=== PATIENT | male | born 1940 | race Caucasian/White ===

== ENCOUNTER 2016-11-27 08:21 | Observation (INO) | payer MEDICARE ==
[2016-11-27 08:49] LABS: Hematocrit 43 % (42-52); Hemoglobin 13.9 g/dl (14.0-18.0); Mean Corpuscular HGB Conc 32 g/dl (31-36); Mean Corpuscular Hemoglobin 28 pg (27-31); Mean Corpuscular Volume 86 fL (80-94); Mean Platelet Volume 8 um3 (7.4-10.4); Red Blood Count 5.04 10^6/ul (4.0-5.4); Red Cell Distribution Width 15 % (10.5-15); White Blood Count 7.6 10^3/ul (3.5-10.8)
[2016-11-27 09:00] LABS: Albumin 4.1 g/dL (3.2-5.2); BUN/Creatinine Ratio 18.1 (8-20); Calcium 8.9 mg/dL (8.6-10.3); EGFR African American 100.1 (>60); EGFR Non-African American 77.8 (>60); Globulin 3.1 g/dL (2-4); HDL Cholesterol 48.2 mg/dL; Potassium 3.9 mmol/L (3.5-5.0); Total Bilirubin 0.7 mg/dL (0.2-1.0); Total Protein 7.2 g/dL (6.4-8.9)
--- NOTE | 2016-11-27 09:10 | RAD ---
INDICATION: Code gary neurologic changes. COMPARISON: There are no prior studies available for comparison. TECHNIQUE: Contiguous axial sections of the brain were obtained from the skull base to the vertex without contrast. FINDINGS: The ventricles are disproportionately enlarged relative to the cisterns and sulci suggesting the possibility of normal pressure hydrocephalus. No significant focal abnormality or mass effect is seen. There is no evidence for hemorrhage. No significant focal osseous abnormality is seen. The visualized portion of the paranasal sinuses and mastoid air cells appear clear. The results of this exam were called to the referring clinician at 0859 hours. IMPRESSION: 1. NO EVIDENCE FOR GROSS ACUTE INFARCT, MASS EFFECT OR HEMORRHAGE. 2. DISPROPORTIONATE ENLARGEMENT OF THE VENTRICLES RELATIVE TO THE CISTERNS AND SULCI SUGGESTING THE POSSIBILITY OF NORMAL PRESSURE HYDROCEPHALUS.
--- NOTE | 2016-11-27 09:15 | RAD ---
INDICATION: Right arm weakness. COMPARISON: Comparison is made with a prior chest x-ray study from April 17, 2010. TECHNIQUE: A portable view of the chest was obtained. FINDINGS: Cardiac and mediastinal contours appear to be within normal limits. The lungs are clear. No pleural effusion is seen. IMPRESSION: NO EVIDENCE FOR ACUTE DISEASE.
[2016-11-27 09:50] LABS: Urine Bilirubin Negative (Negative); Urine Glucose Negative (Negative); Urine Nitrite Negative (Negative)
--- NOTE | 2016-11-27 10:35 | CONSULT ---
Consult Consult: 11/27/16 neurology consult 76 yo RHM, HTN, HL, DM, on ASA 81mg baseline, presenting with right arm symptoms of 10 days duration, and right facial symptoms noted earlier today. 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 He slipped and fell on ice 10 days ago; he thinks he fell onto his left side but twisted his right leg under him. He had some right medial forearm pain for a few hours; this resolved spontaneously; he also noted some tailbone discomfort. He subsequently noted right hand incoordination (eg when typing or using ipad) and sensory asymmetry in all digits but the pinky. This has persisted; he refers to this as proprioceptive loss. Starting this am only he noted right facial sensory asymmetry. He has not had any neck pain, bulbar or bowel or bladder issues, left arm, truncal, leg or gait issues. 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 Plantar responses are flexor; Neely signs absent Coordination: finger to nose was initially dysmetric on right, then self corrected; finger nose finger appears accurate bilaterally Gait: normal casual gait; narrow base; Romberg negative; heel and toe walking intact for age Serologies: chem, cbc, LFT, coags are all fine; LDL 76 non fasting Priors: B12, TSH, PSA all ok; aic 6 in 05/11 Imaging: Head CT reviewed and negative acute findings (questionable relative lateral ventriculomegaly vs age related, but incidental to his presentation; 3rd/4th vents look normal) 06/11 thyroid u/s stable nodules; 04/08 CT chest, abd and pelvis essentially neg Phys: 06/08 holter neg Impression: 76 yo several modest vascular risk factors, presenting with 10 days right hand incoordination and sensory asymmetry (noted post fall) and right facial sensory asymmetry of less than one day duration; his exam has just mild reproducible right finger extensor weakness. He denies significant trauma; and does not appear myelopathic. His head CT is negative for acute findings. Assuming a unifying diagnosis for the arm and facial symptoms, the differential is one of: small evolving left hemisphere stroke vs modest cervical cord involvement ( presumably traumatic); while the hand symptoms could reflect post fall brachial plexus injury, this would not explain his facial symptoms. As the workup and treatment for these 2 categories of disorder are different, then plan will be: 1. Mri brain non contrasted if positive for ischemia, then complete stroke workup with TTE, CTA 2. If mri brain is done and negative, then proceed with non contrasted mri cervical spine 3. I will follow up on the results
[2016-11-27] MEDS ORDERED: Dextrose 50% Syringe 50 ML* 25 GM/50 ML SYRINGE IV PUSH PRN (11:38)
[2016-11-27] MEDS ORDERED: Acetaminophen TAB* 325 MG PO PRN (11:38)
[2016-11-27] MEDS ORDERED: Ondansetron INJ* 2 MG/ML VIAL IV PRN (11:38)
[2016-11-27] MEDS ORDERED: hydrALAZINE IV* 20 MG/ML VIAL IV SLOW PU PRN (11:40)
--- NOTE | 2016-11-27 11:40 | ED ---
IIsrael,Mekhi, scribed for Aaron Wood MD on 11/27/16 at 0843 . Neurological HPI - HPI Summary HPI Summary: This 76 y/o male presents to ED for acute right facial numbness that was noted 0600 AM when he woke up. Pt became concerned for possible stroke and decided to visit ED. Pt reports that he has had intermittent RUE after his mechanical fall on ice 10 days ago. No head injury at that time. He also reports RUE numbness and intermittent vision deficiency at his left vision field. Pt is currently on losartan and pravastatin. 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 Per pt, both parents had CAD. - History of Current Complaint Chief Complaint: EDAltMentalStatus Stated Complaint: WEAKNESS Hx Obtained From: Patient, Medical Records Onset/Duration: Sudden Onset Timing: Constant Onset Severity: Moderate Pain Intensity: 0 Character: Numbness/Tingling - right facial numbness. RUE numbness, Visual Changes - left vision disturbances Aggravating: Nothing Alleviating: Nothing Associated Signs and Symptoms: Positive: Visual Changes. Negative: Weakness, Loss of Consciousness - Allergy/Home Medications Allergies/Adverse Reactions: Allergies Allergy/AdvReac Type Severity Reaction Status Date / Time Lisinopril Allergy Headache Verified 04/05/14 09:37 enviromental Allergy Congestion Uncoded 04/05/14 09:37 PMH/Surg Hx/FS Hx/Imm Hx Endocrine/Hematology History: Reports: Hx Diabetes - type 2 - diabetes mellitus - diet/exercise Denies: Hx Anemia Cardiovascular History: Reports: Hx Hypercholesterolemia, Hx Hypertension GI History: Reports: Other GI Disorders - rlq discomfort, swelling per pt Denies: Hx Jaundice History: Reports: Other Problems/Disorders - enlarged prostate - Cancer History Cancer Type, Location and Year: charles hx Infectious Disease History: No Infectious Disease History: Denies: Traveled Outside the [place] in Last 30 Days - Family History Known Family History: Positive: Cardiac Disease - Social History Alcohol Use: Occasionally Substance Use Type: Reports: None Smoking Status (MU): Never Smoked Tobacco Review of Systems Negative: Fever Positive: Other - left vision disturbances Positive: Numbness - right sided Negative: Anxious, Depressed All Other Systems Reviewed And Are Negative: Yes Physical Exam Triage Information Reviewed: Yes Vital Signs On Initial Exam: Initial Vitals Temp Pulse Resp BP Pulse Ox 98.1 F 92 16 166/88 99 11/27/16 08:22 11/27/16 08:22 11/27/16 08:22 11/27/16 08:22 11/27/16 08:22 Vital Signs Reviewed: Yes Appearance: Positive: Well-Appearing, No Pain Distress Skin: Positive: Warm, Dry Head/Face: Positive: Normal Head/Face Inspection Eyes: Positive: EOMI, BILLY Neck: Positive: Supple, Nontender Respiratory/Lung Sounds: Positive: Breath Sounds Present Cardiovascular: Positive: RRR, Pulses are Symmetrical in both Upper and Lower Extremities Musculoskeletal: Positive: Strength/ROM Intact Neurological: Positive: Facial Droop - mild right facial droop, Other - sensory deficit on right face.. Negative: Slurred Speech Diagnostics - Vital Signs Vital Signs Temp Pulse Resp BP Pulse Ox 11/27/16 08:22 98.1 F 92 16 166/88 99 - Laboratory Lab Results: Lab Results 11/27/16 11/27/16 11/27/16 Range/Units 08:41 08:41 08:41 WBC 7.6 (3.5-10.8) 10^3/ul RBC 5.04 (4.0-5.4) 10^6/ul Hgb 13.9 L (14.0-18.0) g/dl Hct 43 (42-52) % MCV 86 (80-94) fL MCH 28 (27-31) pg MCHC 32 (31-36) g/dl RDW 15 (10.5-15) % Plt Count 277 (150-450) 10^3/ul MPV 8 (7.4-10.4) um3 Neut % (Auto) 75.4 (38-83) % Lymph % (Auto) 13.9 L (25-47) % [place] % (Auto) 8.4 (1-9) % Eos % (Auto) 2.0 (0-6) % Baso % (Auto) 0.3 (0-2) % Absolute Neuts (auto) 5.7 (1.5-7.7) 10^3/ul Absolute Lymphs (auto) 1.1 (1.0-4.8) 10^3/ul Absolute Monos (auto) 0.6 (0-0.8) 10^3/ul Absolute Eos (auto) 0.1 (0-0.6) 10^3/ul Absolute Basos (auto) 0 (0-0.2) 10^3/ul Absolute Nucleated RBC 0 10^3/ul Nucleated RBC % 0 INR (Anticoag Therapy) 0.90 (0.89-1.11) APTT 30.6 (26.0-36.3) seconds Sodium 138 (133-145) mmol/L Potassium 3.9 (3.5-5.0) mmol/L Chloride 105 (101-111) mmol/L Carbon Dioxide 27 (22-32) mmol/L Anion Gap 6 (2-11) mmol/L BUN 17 (6-24) mg/dL Creatinine 0.94 (0.67-1.17) mg/dL Est GFR ( Amer) 100.1 (>60) Est GFR (Non-Af Amer) 77.8 (>60) BUN/Creatinine Ratio 18.1 (8-20) Glucose 112 H (70-100) mg/dL Lactic Acid (0.5-2.0) mmol/L Calcium 8.9 (8.6-10.3) mg/dL Total Bilirubin 0.70 (0.2-1.0) mg/dL AST 16 (13-39) U/L ALT 18 (7-52) U/L Alkaline Phosphatase 64 (34-104) U/L Troponin I 0.00 (<0.04) ng/mL Total Protein 7.2 (6.4-8.9) g/dL Albumin 4.1 (3.2-5.2) g/dL Globulin 3.1 (2-4) g/dL Albumin/Globulin Ratio 1.3 (1-3) Triglycerides 98 mg/dL Cholesterol 144 mg/dL LDL Cholesterol 76 mg/dL HDL Cholesterol 48.2 mg/dL Urine Color Urine Appearance Urine pH (5-9) Ur Specific White (1.010-1.030) Urine Protein (Negative) Urine Ketones (Negative) Urine Blood (Negative) Urine Nitrate (Negative) Urine Bilirubin (Negative) Urine Urobilinogen (Negative) Ur Leukocyte Esterase (Negative) Urine Glucose (Negative) Urine Ascorbic Acid (Negative) Blood Type Antibody Screen 11/27/16 11/27/16 11/27/16 Range/Units 08:41 08:41 09:35 WBC (3.5-10.8) 10^3/ul RBC (4.0-5.4) 10^6/ul Hgb (14.0-18.0) g/dl Hct (42-52) % MCV (80-94) fL MCH (27-31) pg MCHC (31-36) g/dl RDW (10.5-15) % Plt Count (150-450) 10^3/ul MPV (7.4-10.4) um3 Neut % (Auto) (38-83) % Lymph % (Auto) (25-47) % [place] % (Auto) (1-9) % Eos % (Auto) (0-6) % Baso % (Auto) (0-2) % Absolute Neuts (auto) (1.5-7.7) 10^3/ul Absolute Lymphs (auto) (1.0-4.8) 10^3/ul Absolute Monos (auto) (0-0.8) 10^3/ul Absolute Eos (auto) (0-0.6) 10^3/ul Absolute Basos (auto) (0-0.2) 10^3/ul Absolute Nucleated RBC 10^3/ul Nucleated RBC % INR (Anticoag Therapy) (0.89-1.11) APTT (26.0-36.3) seconds Sodium (133-145) mmol/L Potassium (3.5-5.0) mmol/L Chloride (101-111) mmol/L Carbon Dioxide (22-32) mmol/L Anion Gap (2-11) mmol/L BUN (6-24) mg/dL Creatinine (0.67-1.17) mg/dL Est GFR ( Amer) (>60) Est GFR (Non-Af Amer) (>60) BUN/Creatinine Ratio (8-20) Glucose (70-100) mg/dL Lactic Acid 1.2 (0.5-2.0) mmol/L Calcium (8.6-10.3) mg/dL Total Bilirubin (0.2-1.0) mg/dL AST (13-39) U/L ALT (7-52) U/L Alkaline Phosphatase (34-104) U/L Troponin I (<0.04) ng/mL Total Protein (6.4-8.9) g/dL Albumin (3.2-5.2) g/dL Globulin (2-4) g/dL Albumin/Globulin Ratio (1-3) Triglycerides mg/dL Cholesterol mg/dL LDL Cholesterol mg/dL HDL Cholesterol mg/dL Urine Color Yellow Urine Appearance Clear Urine pH 5.0 (5-9) Ur Specific White 1.020 (1.010-1.030) Urine Protein Negative (Negative) Urine Ketones Negative (Negative) Urine Blood Negative (Negative) Urine Nitrate Negative (Negative) Urine Bilirubin Negative (Negative) Urine Urobilinogen Negative (Negative) Ur Leukocyte Esterase Negative (Negative) Urine Glucose Negative (Negative) Urine Ascorbic Acid * H (Negative) Blood Type A Negative Antibody Screen Negative Result Diagrams: 11/27/16 08:41 11/27/16 08:41 Lab Statement: Any lab studies that have been ordered have been reviewed, and results considered in the medical decision making process. - Radiology CXR Xray Interpretation: No Acute Changes Radiology Interpretation Completed By: Radiologist - CT Brain CT Interpretation: No Acute Changes - 1. NO EVIDENCE FOR GROSS ACUTE INFARCT, MASS EFFECT OR HEMORRHAGE. 2. DISPROPORTIONATE ENLARGEMENT OF THE VENTRICLES RELATIVE TO THE CISTERNS AND SULCI SUGGESTING THE POSSIBILITY OF NORMAL PRESSURE HYDROCEPHALUS. CT Interpretation Completed By: Radiologist - EKG 0838 Cardiac Rate: NL EKG Rhythm: Sinus Rhythm Ectopy: PACs EKG Interpretation: NSR at 88 bpm with PACs and normal ST Course/Dx - Course Assessment/Plan: DR [place], NEUROLOGY, SAW PATIENT IN ED. ADMIT HOSPITALIST STABLE. - Diagnoses Provider Diagnoses: Facial weakness, Arm weakness During the Visit The Following Alert/Code Occurred: [place] - 0831 AM - Physician Notifications Discussed Care of Patient With: Dr. Hernandez (Neurology) at [address] Franklin (Radiologist) at 0902 AM. Perry Velázquez NP (Hospitalist) at [address] Franklin (Radiologist) at 1125 AM. Discussion about MRI. Time Discussed With Above Provider: 08:37 Instructed by Provider To: Will See In ED Discharge - Discharge Plan Condition: Stable Disposition: ADMITTED TO [facility] The documentation as recorded by the Israel trujillo Soohyun accurately reflects the service I personally performed and the decisions made by , Aaron Wood MD.
--- NOTE | 2016-11-27 14:10 | HP ---
HISTORY AND PHYSICAL:* ADDENDUM: Mr. Appiah is a 76-year-old male with history of hypertension, dyslipidemia, who presented to [facility] complaining of problems with proprioception in his right hand as well as right facial numbness that developed today. The problems with clumsiness in the right hand had been going on for 10 days ever since he fell hitting the right side of his body on ice 10 days ago. The patient was seen by a neurologist who recommended observation to rule out CVA. The patient is going to be observed on telemetry monitored floor. For further details of the patient's presentation and plan, please see History and Physical dictated by Perry Velázquez NP, on 11/27/16, with which I agree. [id number]/CPS #: [id number] MTDD
[2016-11-27] MEDS ORDERED: Iodixanol* (CONTRAST) 320 MG/ML 100 ML SDV IV ONE (14:15)
--- NOTE | 2016-11-27 14:19 | RAD ---
INDICATION: Right face and arm numbness and weakness. COMPARISON: Correlation is made with a prior CT of the brain of the same day. TECHNIQUE: Sagittal T1, axial T1, T2, susceptibility, FLAIR and diffusion weighted images were obtained. FINDINGS: The ventricles are disproportionately enlarged relative to the cisterns and sulci. There are small areas of increased signal intensity in the subcortical and periventricular white matter on T2-weighted images suggestive of mild chronic small vessel ischemic changes. There are several small areas of restricted diffusion present in the left frontal and parietal lobes involving the cortex and subcortical white matter consistent with with an acute to subacute infarcts. There is no evidence for hemorrhage. The visualized portion of the paranasal sinuses and mastoid air cells appear clear. IMPRESSION: 1. SMALL AREAS OF RESTRICTED DIFFUSION PRESENT IN THE LEFT FRONTAL AND PARIETAL LOBES MOST CONSISTENT WITH ACUTE TO SUBACUTE INFARCTS. 2. DISPROPORTIONATE ENLARGEMENT OF THE VENTRICLES RELATIVE TO THE CISTERNS AND SULCI SUGGESTING THE POSSIBILITY OF NORMAL PRESSURE HYDROCEPHALUS.
--- NOTE | 2016-11-27 15:10 | RAD ---
INDICATION: Right face and arm numbness and weakness. COMPARISON: There are no prior studies available for comparison. TECHNIQUE: Axial T2 and sagittal T1 and T2 and coronal T2-weighted images of the cervical spine were obtained. FINDINGS: The vertebra are in normal alignment. No significant focal bony abnormality or fracture is seen. The craniocervical junction is within normal limits. The spinal cord is normal in shape and signal intensity. At the C4-C5 level there is a minimal broad-based disc bulge. No spinal canal or neural foraminal narrowing is present. At the C5-C6 level there is a mild broad-based disc bulge. No spinal canal or neural foraminal narrowing is present. At the C6-C7 level there is mild posterior uncinate process spurring associated with a mild broad-based disc bulge. No significant spinal canal or neural foraminal narrowing is present. IMPRESSION: MILD CERVICAL SPONDYLOSIS.
--- NOTE | 2016-11-27 15:16 | HP ---
ATTENDING PHYSICIAN ADDENDUM NOW INCLUDED ON THIS REPORT HISTORY AND PHYSICAL: DATE OF ADMISSION: 11/27/16 PRIMARY CARE PROVIDER: Dr. Camarena. MY ATTENDING PHYSICIAN WHILE IN THE HOSPITAL: Dr. Lavern Chavez * (report dictated by Perry Velázquez NP). CONSULTING NEUROLOGIST: Dr. Hernandez. CHIEF COMPLAINT: 1. Right arm numbness. 2. Right facial numbness. HISTORY OF PRESENT ILLNESS: Mr. Appiah is a 76-year-old male patient who carries a history of diet-controlled diabetes, hypertension, hyperlipidemia, BPH , optic migraine, and GERD. He states that about 10 days ago, he was in his driveway and he sustained a fall on ice, he landed on his right knee and his right wrist and arm. He states that since then, he has noticed off and on he has been having difficulty with depth perception and fine motor skills with his right hand off and on. He states he has trouble typing, he has trouble moving a mouse with that arm and particularly the hand. He states he has got good strength of his upper extremity at his shoulders and his elbows, but he states with his hand, he has noticed that he is having trouble with depth perception. He notices when he sets a cup of coffee down and he goes to pick it back up, he spills it. He has also noticed numbness in the digits as well. He states that this has been going on for about 10 days, but today he noticed he was starting to have some right facial numbness and it was also noted that it felt like he had been shot up with Novocaine in that face. He states it felt numb, that is all. No facial droop or trouble with speech. He also does admit to having yesterday a visual field defect in his left eye. He states the upper portion of his left visual field appeared to be blurry, lasted 2 minutes and then went away. He denies having any weakness to his lower extremities and states that he just noted that there was something off with his right hand and his right arm in terms of depth perception and proprioception in his own words. So he came into the hospital today to be evaluated. A Code Caldwell was called, but tPA was not given as the time of onset was unclear and the symptoms were minimal. Neurology was asked to evaluate and the hospitalist service was asked to evaluate and consult for admission. PAST MEDICAL HISTORY: Significant for: 1. Hypertension. 2. Diet-controlled diabetes. 3. Hyperlipidemia. 4. BPH. 5. Optic migraines. 6. GERD. PAST SURGICAL HISTORY: He has had a cholecystectomy. FAMILY HISTORY: Both his parents had MIs, his mother at 68, father at 72. SOCIAL HISTORY: He does not smoke. Rarely drinks alcohol. He is . Surrogate decision maker is his , Alize. ALLERGIES TO MEDICATIONS: Include LISINOPRIL. MEDICATIONS: His home meds according to the list provided includes: 1. Flomax 0.4 mg daily. 2. VESIcare 5 mg daily. 3. Pravastatin 80 mg at bedtime. 4. Lutein 10 mg daily. 5. Cozaar 25 mg daily. 6. Proscar 5 mg daily. 7. Aspirin 81 mg daily. REVIEW OF SYSTEMS: There is no documented fever. He denied having any significant weight change. There was no double vision. He admitted to have one episode of blurry vision. He denies any ear discharge, any rhinorrhea. No sore throat. No thyroid enlargement. Denies any chest pain. There is no palpitations. Denies having any orthopnea. There is no shortness of breath. There is no nausea, vomiting. No dysuria. No frequency. No loss of consciousness. No pruritus and no skin ulcerations. Review of 14 systems completed, all others negative. PHYSICAL EXAMINATION GENERAL: At this time, Mr. Appiah is a 76-year-old male patient. He is sitting in the ER stretcher. He does not appear to be in any acute distress. VITAL SIGNS: Blood pressure 166/79, pulse 88, respirations 18, O2 sat 98%, temperature 98.1. HEENT: Head is atraumatic, normocephalic. Eyes: EOMs are intact. Sclerae anicteric. Throat: Oral mucosa appears to be moist. No oropharyngeal erythema. NECK: Supple. HEART: Sounds S1, S2. Regular rate and rhythm. No murmurs, rubs or gallops. LUNGS: Clear to auscultation bilaterally. No wheezes, rales or rhonchi. ABDOMEN: Soft, flat, nontender. Bowel sounds present. EXTREMITIES: Pulses were 2+ throughout. He is able to move all 4 extremities with 5/5 strength. NEUROLOGICAL: The patient is awake, he is alert, he is oriented x3. His speech is clear. His tongue is midline. Cranial nerves II through XII are intact. He had 5/5 strength in the upper extremities with both flexion and extension at the elbows and at the shoulder and 5/5 strength in the lower extremities. Zcmtkr-rw-[id number] was dysmetric on the right and chapjd-nk-[id number] was accurate on the left. He had heel-to- chin intact bilaterally. He had normal gait. His skin was grossly intact. LABORATORY DATA: The labs today revealed a WBC of 7.6, RBC of 5.04, hemoglobin 13.9, hematocrit of 43, platelet count of 227. INR was 0.90. PTT of 30.6. Sodium 138, potassium 3.9, chloride 105, bicarb 27, BUN 17, creatinine 0.94. Glucose of 112. Lactate 1.2, calcium 8.9, total bilirubin 0.7. AST 16, ALT 18, alk phos 54, troponin 0, albumin 4.1. His LDH was 76, triglycerides 98. Total cholesterol 144. Urine was obtained. It was negative. He had an EKG obtained today, which revealed a normal sinus rhythm. He did have a PAC. No ST-elevations or T-wave inversions, rate of 88. As reviewed in the previous EKG, it is similar. He had PVC with the previous EKG. He had a chest x-ray obtained today, showed no evidence of acute disease. There was a brain CT obtained today, showed no evidence of gross acute infarct, mass effect or hemorrhage. Disproportionate enlargement of the ventricle as well as cisterns , suggesting possibility of normal pressure hydrocephalus. Old medical records were reviewed. ASSESSMENT AND PLAN: Mr. Appiah is a 76-year-old male patient coming into the ER today with complaints of discoordination to the base of his right hand, and trouble with fine motor skills and numbness to the right face. He was evaluated in the ER, there was concern for possible TIA versus stroke. Hospitalist service was asked to evaluate for admission. He will be admitted under observation status for: 1. Transient ischemic attack versus cerebrovascular accident versus possible cervical cord involvement. At this point, the patient has been seen by Neurology, I will refer you to the consult for details, but the plan is to do an MRI of the brain, MRI of the neck at this point. If the MRI of the brain is positive, he will need an echo, he will need a CTA. We will place him on telemetry for the time being because there is concern for possible stroke. I did put him on aspirin and moderate-dose statin and Lipitor 40 mg daily. We will check his lipids in the morning fasting and an A1c as well, his last one was about 6 months ago, so monitor this, and because there is concern for CVA, I am going to allow permissive hypertension in this setting. I will treat his blood pressure if the systolic is greater than 190 or the diastolic greater than 110 and we will continue to monitor him. We will do neuro checks and MRI should be done later today. Should there be any cord involvement, obviously we will get neurosurgical evaluation and input, but we will await MRI of the brain. 2. Diabetes. He will be on lispro sliding scale. 3. Hypertension, again allow for permissive hypertension, hold the Cozaar, p.r.n. hydralazine has been ordered. 4. Hyperlipidemia, continue statin therapy. 5. BPH, I have held his alpha-aime for the time being, but we will continue his VESIcare and his Flomax. 6. Optic migraines. 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 7. Gastroesophageal reflux disease. He is currently not on any PPI therapy. We will continue lifestyle modifications. 8. DVT prophylaxis. He is risk high and placed on heparin subcu. 9. Code status: Full code. 10. Fluid, electrolytes, and nutrition. He can have a heart healthy diet. TIME SPENT: On the admission was 60 minutes; greater than half the time was spent [id number] with the patient obtaining my history and physical, the other half time was spent going over the plan of care with the patient and implementing plan of care. I did discuss the plan of care with my attending, Dr. Chavez, she is in agreement. PERRY VELÁZQUEZ NP ADDENDUM: Mr. Appiah is a 76-year-old male with history of hypertension, dyslipidemia, who presented to [facility] complaining of problems with proprioception in his right hand as well as right facial numbness that developed today. The problems with clumsiness in the right hand had been going on for 10 days ever since he fell hitting the right side of his body on ice 10 days ago. The patient was seen by a neurologist who recommended observation to rule out CVA. The patient is going to be observed on telemetry monitored floor. For further details of the patient's presentation and plan, please see History and Physical dictated by Perry Velázquez NP, on 11/27/16, with which I agree. LAVERN CHAVEZ MD CC: Dr. Camarena; Dr. Hernandez* [id number]/[facility] #: [id number]/[id number] #: [id number] ELIS
[2016-11-27] MEDS ORDERED: Insulin LISPRO* 1 UNITS UNIT SUBCUT SCH (16:30)
[2016-11-27] MEDS ORDERED: Atorvastatin* 40 MG TAB PO SCH (17:00)
[2016-11-27] MEDS ORDERED: Atorvastatin* 80 MG TAB PO ONE (18:26)
--- NOTE | 2016-11-27 18:26 | RAD ---
INDICATION: CVA. COMPARISON: Comparison is made with a prior MRI of the brain from November 27, [address] of the chest, from April 05, 2014. TECHNIQUE: A CT angiogram of the head and neck was performed following intravenous injection of 80 ml of Visipaque 320 nonionic contrast. Contiguous axial sections were obtained from the thoracic inlet through the skull vertex. Images were reconstructed in the coronal and sagittal planes and in a 3-D volume rendered format. The distal cervical internal carotid artery diameter is used as the denominator for stenosis measurement. FINDINGS: RIGHT CAROTID: The common carotid artery is widely patent. There is mild to moderate calcific and soft plaque present within the carotid bulb and proximal internal carotid artery giving rise to a approximately 30% stenosis. No hemodynamically significant stenosis is seen. The remaining internal carotid artery appears widely patent. LEFT CAROTID: The common carotid artery appears widely patent. There is calcific and soft plaque which causes a high-grade greater than 90% stenosis in the proximal internal carotid artery. The remaining internal carotid artery appears widely patent. VERTEBRALS: The vertebral arteries appear patent. CTA BRAIN: The internal carotid, anterior and middle cerebral arteries appear patent without evidence for high-grade stenosis or occlusion. The vertebral, basilar and posterior cerebral arteries appear patent without evidence for high-grade stenosis or occlusion. No aneurysm or vascular malformation is seen. The thyroid gland is heterogeneous in density with a large substernal component measuring approximately 4.9 x 5.0 cm in size. This previously measured 4.3 x 4.7 cm in size and therefore is increased slightly in size. No significant enlarged lymph nodes are seen in the neck. The parotid and submandibular glands appear to be within normal limits. The results of this exam were called to the referring clinician. IMPRESSION: 1. 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 2. LARGE SUBSTERNAL GOITER SLIGHTLY INCREASED IN SIZE FROM THE PRIOR STUDY. CPT II Codes: 3100F
[2016-11-27 18:50] VITALS: BP 155/77
[2016-11-27] MEDS ORDERED: Clopidogrel TAB* 300 MG PO ONE (19:04)
[2016-11-27] MEDS ORDERED: NS 0.9% 1000 ML* 1,000 ML IV SCH (19:45)
--- NOTE | 2016-11-27 20:51 | TRS ---
TRANSFER SUMMARY: DATE OF ADMISSION: 11/27/16 DATE OF TRANSFER: 11/27/16 ACCEPTING PHYSICIAN: Dr. Camacho, [facility]. ATTENDING PHYSICIAN WHILE IN HOSPITAL: Dr. Tanner Andrade *(report dictated by Anisha Velázquez NP). CONSULTING NEUROLOGIST: Dr. Hernandez. REASON FOR TRANSFER: Carotid artery stenosis in the setting of transient neurological symptoms. SECONDARY DIAGNOSES: 1. Cerebrovascular accident. 2. Diet-controlled diabetes. 3. Hyperlipidemia. 4. Hypertension. 5. Optic migraines. 6. Benign prostatic hypertrophy. 7. Gastroesophageal reflux disease. TRANSFER MEDICATIONS: Include: 1. Zofran 4 mg IV every 6 hours as needed for nausea. 2. Plavix 300 mg p.o. x1. 3. Atorvastatin 80 mg p.o. x1. 4. Aspirin 81 mg daily. 5. Acetaminophen 650 p.o. every 4 hours as needed. 6. Lutein 10 mg p.o. daily. 7. Flomax 0.4 mg p.o. daily. 8. VESIcare 5 mg daily. 9. Normal saline at 125 cc an hour. 10. Heparin 5000 units subcu every 12 hours as needed for DVT prophylaxis. 11. Insulin sliding scale, lispro. HOME MEDICATIONS: Include: 1. Aspirin 81 mg daily. 2. Proscar 5 mg daily. 3. Lutein 10 mg daily. 4. Cozaar 25 mg daily. 5. Flomax 0.4 mg daily. 6. VESIcare 5 mg daily. 7. Pravachol 80 mg daily. HISTORY OF PRESENT ILLNESS AND HOSPITAL COURSE: I refer you to my H and P dictated earlier today, but in short, Mr. Appiah is a 76-year-old male patient who presented to the emergency department today after having a 10-day history of having symptoms of discoordination and trouble with fine motor coordination of his right hand and upper extremity. He says that the symptoms came and went throughout the last 10 days. He initially attributed this to a fall. He slipped on the driveway. He twisted his knee and he fell and landed on his right wrist. He states that since then he has been noticing this numbness and tingling off and on in the right hand and having difficulty with fine motor task of the right hand. Today, however, he started getting facial numbness in the right side that came and went. He was concerned at that point feeling that this may represent a stroke, so he decided to come in. He was evaluated by Dr. Hernandez, our neurologist, who felt that this may represent cervical spine central canal stenosis, possible CVA, or possibly even a plexus injury secondary to the fall. The patient underwent an MRI of the brain today, which did show subacute and acute infarcts to the left frontal and parietal lobes. At that point, we proceeded down the pathway of working up the CVA. We did a CTA of the head and neck, which had a correlating proximal internal carotid artery stenosis on the left side of greater than 90% and there was also a subsequently noted substernal goiter as well. He is remained symptom free, still does have some dysmetria at times on that right side, but that is his only focal finding on exam. I touch base with Dr. Hernandez after I received phone call from Dr. Franklin, our radiologist. At this point, it was felt that the patient would require transfer. I did receive the result of the study at [address] Franklin and shortly thereafter got on the phone with [facility] and arranged transfer as he most likely would require a carotid artery endarterectomy or stenting but I will defer further management to the vascular team at [facility]; I touch base with Dr. Camacho, who recommended loading with Lipitor, which we have given him 80 mg already and also recommended loading the patient with Plavix per Dr. Camacho, which we did and he has already received aspirin. His blood pressure has maintained with this in the greater than 140 range. He is 155 systolically right now and I am keeping his head of the bed less than 30 degrees and I have normal saline about 125 an hour and a transport has been arranged with [facility] with frequent neuro checks. PHYSICAL EXAMINATION ON DISCHARGE: Vital Signs: Blood pressure 155/70 with pulse 80, respirations 16, O2 saturation 99%, temperature 98.0. At this time, Mr. Appiah is a 76-year-old male patient. He is sitting in the hospital bed, does not appear to be in any acute distress. HEENT: Head: Atraumatic, normocephalic. Eyes: Sclerae anicteric. Neck: Supple. Throat mucosa appeared to be dry. No oropharyngeal erythema. Heart: Sounds S1, S2. Regular rate and rhythm. No murmurs, rubs, or gallops. Lungs: Clear to auscultation. No wheezes, rales, or rhonchi. Abdomen: Soft, flat, and nontender. Bowel sounds present. Extremities: Pulses were 2+ throughout. He can move all 4 extremities with 5/5 strength. Neurologically, he is awake, alert , and oriented x3. His cranial nerves II through XII intact. He had dysmetria noted to the [id number] on the right side. Heel- to-porter intact bilaterally. Aircraft Body Repairer were equal. No other gross focal findings were noted. No facial drooping. Speech was clear. His skin is intact. LABS ON TRANSFER: WBC of 7.6, RBC of 5.04, hemoglobin 13.9, hematocrit of 43, and platelet count 277. INR 0.90. PTT of 30.6. Sodium 138, potassium 3.9, chloride 105, bicarb 27, BUN 17, creatinine 0.94, glucose 112, lactic 1.2, calcium 8.9. Total bili 0.7, AST 16, ALT 18, alk phos 64, troponin 0. Albumin 4.1, LDH was 76. His cholesterol is 144, triglycerides 98. Urine was negative. 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 He had a cervical spine MRI as well today, which showed mild cervical spondylosis. He had a brain MRI obtained today, which showed small areas of restriction diffusion present in the left frontal and parietal lobes most consistent with acute to subacute infarcts, disproportionate enlargement of the ventricles relative to the cisterns and sulci suggesting a possibility of normal pressure hydrocephalus. He had a chest x-ray obtained today as well, which showed no evidence of acute disease. Brain CT again today showed no evidence for gross acute infarct, mass effect, or hemorrhage. Disproportionate enlargement of the ventricles relative to cisterns and sulci suggesting the possibility of normal pressure hydrocephalus. He had an EKG obtained today, which showed normal sinus rhythm with PACs, rate of 88. No ST elevations or T- wave inversions were noted. STATUS DURING HOSPITALIZATION: Observation. CONDITION AT TRANSFER: Stable. TIME SPENT: Time spent on the transfer was approximately 60 minutes; greater than half the time was spent [id number] with the patient going over the transfer plan, the other half the time was spent implementing the plan. I did discuss this with my attending, Dr. Andrade. He is in agreement. ANISHA VELÁZQUEZ NP CC: Dr. Camacho, [facility]; Dr. Hernandez; Dr. Camarena * [id number]/[facility] #: [id number] [facility] CENTERJuan J
[2016-11-27] MEDS ORDERED: Heparin VIAL(*) 5000 UNITS/ML VIAL (FIVE THOUSAND) SUBCUT SCH (21:00)
[2016-11-28] MEDS ORDERED: Tamsulosin CAP* 0.4 MG PO SCH (09:00)
[2016-11-28] MEDS ORDERED: Aspirin Low Dose CHEW TAB* 81 MG PO SCH (09:00)
[2016-11-28] MEDS ORDERED: LUTEIN 10 MG PO SCH (09:00)
[2016-11-28] MEDS ORDERED: CMC:Solifenacin(NF) 5 MG TAB PO SCH (09:00)
[2016-11-28] MEDS ORDERED: Atorvastatin* 40 MG TAB PO SCH (17:00)
== END 2016-11-27 22:10 | disposition short-term general hospital (02) ==
LOC: ED 08:21 → MEDTELE 10:47
PROVIDERS: ADMIT Internal Medicine; ATTEND Internal Medicine
DX: R20.0 Anesthesia of skin (principal); H53.9 Unspecified visual disturbance; I10 Essential (primary) hypertension; E11.9 Type 2 diabetes mellitus without complications; E78.5 Hyperlipidemia, unspecified; I49.9 Cardiac arrhythmia, unspecified; N40.0 Benign prostatic hyperplasia without lower urinary tract symptoms; K21.9 Gastro-esophageal reflux disease without esophagitis; Z79.899 Other long term (current) drug therapy; Z79.82 Long term (current) use of aspirin
CPT/HCPCS: 36415; 70450; 70496; 70498; 70551; 71010; 72141; 80053; 80061; 81003; 83605; 84484; 85025; 85610; 85730; 86850; 86900; 86901; 93005; 99285; A9270-GY; G0378; Q9967

== ENCOUNTER 2019-08-15 08:38 | Day surgery (SDC) | payer MEDICARE ==
[~2019-08-15 08:38] MED LIST: Buffered Lidocaine 1% SYRIN* 1 ML/SYRINGE INTRADERM ONE
[2019-08-15] MEDS ORDERED: Midazolam* 1 MG/ML 2 ML VIAL (2 MG) ONE (10:38)
[2019-08-15] MEDS ORDERED: Lidocaine 1% MPF ** 5 ML VIAL ONE (10:43)
[2019-08-15] MEDS ORDERED: Ketorolac 0.5% OPHTH (NF) 0.5 % 5 ML BTL ONE (10:43)
[2019-08-15] MEDS ORDERED: Lidocaine 2% w/ EPI 1:200,000* 20 ML SDV VIAL ONE (10:43)
[2019-08-15] MEDS ORDERED: acetaZOLAMIDE TAB* 250 MG ONE (10:43)
[2019-08-15] MEDS ORDERED: Neomycin/Polymy/Dex OPTH.SUSP* MAXITROL 0.1% 5 ML ONE (10:43)
[2019-08-15] MEDS ORDERED: Proparacaine 0.5% OPHTH.SOL* 15 ML BTL ONE (10:43)
[2019-08-15] MEDS ORDERED: Phenylephrine OPHTH SOL 2.5%* 2 ML ONE (10:43)
[2019-08-15] MEDS ORDERED: Cyclopentolate 1% OPTH.SOL* 2 ML BTL ONE (10:43)
[2019-08-15] MEDS ORDERED: Povidone Iodine 5% OPTH* 30 ML BTL ONE (10:43)
[2019-08-15 11:33] VITALS: BP 111/58
--- NOTE | 2019-08-15 14:36 | OP ---
DATE OF OPERATION: 08/15/19 [facility] DATE OF : 38 SURGEON: Chucky Cohen M.D. PREOPERATIVE DIAGNOSIS: Cataract, right eye. POSTOPERATIVE DIAGNOSIS: Cataract, right eye. OPERATIVE PROCEDURE: Extracapsular cataract extraction with intraocular lens implant right eye. DESCRIPTION OF PROCEDURE: The patient was brought to the operating room after being given 1/2% Alcaine with epinephrine drops in the preoperative area. The eye was prepped and draped in the usual sterile fashion. Sterile drape and eyelid speculum were placed. Again, topical 1/2% Alcaine with epinephrine was given. A paracentesis incision was made at the 9 o'clock position with the No.75 blade. Clear cornea incision 2.2 x 2.2-mm was created at the 12 o'clock position starting at the anterior limbus using the 2.2-mm keratome. The anterior chamber was irrigated with 0.4 mL of 1% non-preservative intracameral lidocaine and filled with DisCoVisc. A capsulorrhexis was completed using the cystotome and the Utrata forceps. Hydrodissection was performed with balanced salt solution. The lens nucleus was removed with the Phacoemulsification handpiece without incident. Cortex was removed with the irrigation-aspiration handpiece. The capsular bag was re-inflated using DisCoVisc and an [id number] 13.5 implant was inserted with the shooter, oriented to the 25-degree meridian. Horizontal reference gross were made in the preoperative area with the patient in seated position. Pupil was small, so a Malyugin ring was placed prior to capsulorrhexis, removed after insertion of the lens. All measurements confirmed with ORA. The irrigation-aspiration handpiece was used to remove all residual DisCoVisc. The eye was refilled with balanced salt solution and the wound checked and found to be watertight. Topical Maxitrol drops were given. Indication for complex cataract surgery: Pupil abnormalities requiring pupil dilation device. [id number] #: [id number] ELIS
== END 2019-08-15 11:45 | disposition home or self-care (01) ==
LOC: OREAST 08:38
PROVIDERS: ATTEND Specialist
DX: H25.11 Age-related nuclear cataract, right eye (principal); H21.561 Pupillary abnormality, right eye; H53.461 Homonymous bilateral field defects, right side; Z79.84 Long term (current) use of oral hypoglycemic drugs; E11.3293 Type 2 diabetes mellitus with mild nonproliferative diabetic retinopathy without macular edema, bilateral; N40.1 Benign prostatic hyperplasia with lower urinary tract symptoms; N13.8 Other obstructive and reflux uropathy; E03.9 Hypothyroidism, unspecified; I10 Essential (primary) hypertension; E78.5 Hyperlipidemia, unspecified; Z86.73 Personal history of transient ischemic attack (TIA), and cerebral infarction without residual deficits; I65.29 Occlusion and stenosis of unspecified carotid artery
CPT/HCPCS: A9270-GY; J2250; V2787

== ENCOUNTER → 2019-08-29 07:03 | Day surgery (SDC) | payer MEDICARE ==
[~2019-08-29 07:03] MED LIST changes: +Cyclopentolate 1% OPTH.SOL* 2 ML BTL ONE; +Ketorolac 0.5% OPHTH (NF) 0.5 % 5 ML BTL ONE; +Lidocaine 1% MPF ** 5 ML VIAL ONE; +Lidocaine 2% w/ EPI 1:200,000* 20 ML SDV VIAL ONE; +Midazolam* 1 MG/ML 2 ML VIAL (2 MG) ONE; +Neomycin/Polymy/Dex OPTH.SUSP* MAXITROL 0.1% 5 ML ONE; +Phenylephrine OPHTH SOL 2.5%* 2 ML ONE; +Povidone Iodine 5% OPTH* 30 ML BTL ONE; +Proparacaine 0.5% OPHTH.SOL* 15 ML BTL ONE; +acetaZOLAMIDE TAB* 250 MG ONE
[2019-08-29 09:33] VITALS: BP 138/61
--- NOTE | 2019-08-29 09:53 | OP ---
OPERATIVE NOTE: DATE OF OPERATION: 08/29/19 DATE OF : 38 SURGEON: Chucky Cohen MD. PREOPERATIVE DIAGNOSIS: Cataract, left eye. POSTOPERATIVE DIAGNOSIS: Cataract, left eye. OPERATIVE PROCEDURE: Extracapsular cataract extraction with intraocular lens implant, left eye. Indication for complex cataract surgery: Pupil abnormalities requiring pupil dilation device. PROCEDURE: The patient was brought to the operating room after being given 1/2% Alcaine with epineph rine drops in the preoperative area. The eye was prepped and draped in the usual sterile fashion. S terile drape and eyelid speculum were placed. Again, topical 1/2% Alcaine with epinephrine was given . A paracentesis incision was made at the 3 o'clock position with the No.75 blade. Clear cornea inc ision 2.2 x 2.2-mm was created at the 6 o'clock position starting at the anterior limbus using the 2. 2-mm keratome. The anterior chamber was irrigated with 0.4 mL of 1% non-preservative intracameral li docaine and filled with DisCoVisc. A capsulorrhexis was completed using the cystotome and the Utrata forceps. Hydrodissection was performed with balanced salt solution. The lens nucleus was removed wi th the Phacoemulsification handpiece without incident. Cortex was removed with the irrigation-aspira tion handpiece. The capsular bag was re-inflated using DisCoVisc and an [id number] implant was insert ed with the shooter and oriented to the 170-degree meridian. Pupil was very small, so Malyugin ring was placed prior to capsulorrhexis and removed after insertion of the lens. All measurements confirm ed with ORA. The irrigation-aspiration handpiece was used to remove all residual DisCoVisc. The eye was refilled with balanced salt solution and the wound checked and found to be watertight. Topical Maxitrol drops were given. [id number]/[facility] #: [id number]
== END | disposition home or self-care (01) ==
LOC: OREAST 07:03
PROVIDERS: ATTEND Specialist
DX: H25.12 Age-related nuclear cataract, left eye (principal); H21.562 Pupillary abnormality, left eye; E11.3293 Type 2 diabetes mellitus with mild nonproliferative diabetic retinopathy without macular edema, bilateral; H53.461 Homonymous bilateral field defects, right side; I10 Essential (primary) hypertension; N40.0 Benign prostatic hyperplasia without lower urinary tract symptoms; Z79.84 Long term (current) use of oral hypoglycemic drugs; E03.9 Hypothyroidism, unspecified; Z85.820 Personal history of malignant melanoma of skin; Z86.73 Personal history of transient ischemic attack (TIA), and cerebral infarction without residual deficits
CPT/HCPCS: A9270-GY; J2250; V2787

== ENCOUNTER 2023-07-10 11:40 | Observation (INO) ==
[2023-07-10 12:13] LABS: ABS Basophils 0.1 10^3/uL (0.0-0.1); ABS Eosinophils 0.1 10^3/uL (0.0-0.5); ABS Monocytes 0.9 10^3/uL (0.0-1.1); ABS Neutrophils 9.6 10^3/uL (1.5-7.6); Hematocrit 34.7 % (38-53); Hemoglobin 11.7 g/dL (13.2-16.3); Lymphocyte % 8.9 %; Mean Corpuscular Hemoglobin 27.5 pg (27-33); Mean Corpuscular Hgb Conc 33.8 g/dL (31-36); Mean Corpuscular Volume 81.3 fL (80-97); Mean Platelet Volume 7.3 fL (7.5-11.2); Platelet Count 368 10^3/uL (150-450); Red Blood Count 4.26 10^6/uL (4.06-5.63); Red Cell Distribution Width 16.9 % (12-17); White Blood Count 11.8 10^3/uL (3.6-10.2)
[2023-07-10] MEDS ORDERED: Iodixanol (CONTRAST) 320 MG/ML 100 ML SDV IV ONE (12:24)
[2023-07-10 12:28] LABS: INR 1.07 (0.83-1.13)
[2023-07-10 12:29] LABS: Albumin 3.8 g/dL (3.2-5.2); Calcium 8.7 mg/dL (8.6-10.3); Direct Bilirubin 0.1 mg/dL (0.03-0.18); Indirect Bilirubin 0.5 mg/dL (0.3-1.0); Total Bilirubin 0.6 mg/dL (0.2-1.0)
[2023-07-10 12:36] LABS: Albumin/Globulin Ratio 1.2 (1-3); Creatinine, Serum 0.99 mg/dL (0.67-1.17); Globulin 3.2 g/dL (2-4); HDL Cholesterol 41.4 mg/dL; eGFR CKD-EPI 75.1 (>60)
[2023-07-10] MEDS ORDERED: Lactated Ringers 1000 ml BAG 1,000 ML IV ONE (13:39)
[2023-07-10 16:25] LABS: High Sensitivity Troponin 1 Hr 3 pg/mL (<20)
[2023-07-10] MEDS ORDERED: Labetalol IV 5 MG/ML 20 ml VIAL IV PUSH PRN (18:11)
[2023-07-10] MEDS ORDERED: Polyethylene Glycol 3350 17 GM PACKET PO PRN (18:16)
[2023-07-10] MEDS ORDERED: Enoxaparin 40 MG/0.4 ML SYR SUBCUT SCH (21:00)
[2023-07-11 07:53] LABS: ABS Eosinophils 0.2 10^3/uL (0.0-0.5); ABS Lymphocytes 0.9 10^3/uL (1.0-4.8); ABS Monocytes 0.8 10^3/uL (0.0-1.1); ABS Neutrophils 7.8 10^3/uL (1.5-7.6); ABS Nucleated RBC 0.01 10^3/ul; Eosinophil % 1.6 %; Hematocrit 31.9 % (38-53); Lymphocyte % 8.9 %; Mean Corpuscular Hemoglobin 28.1 pg (27-33); Mean Corpuscular Hgb Conc 34.5 g/dL (31-36); Mean Corpuscular Volume 81.5 fL (80-97); Mean Platelet Volume 7.6 fL (7.5-11.2); Nucleated Red Blood Cells % 0.1 %/100WBC (0.0-0.8); Platelet Count 370 10^3/uL (150-450); Red Blood Count 3.91 10^6/uL (4.06-5.63); Red Cell Distribution Width 17.2 % (12-17); White Blood Count 9.7 10^3/uL (3.6-10.2)
[2023-07-11 08:22] LABS: Albumin 3.4 g/dL (3.2-5.2); Albumin/Globulin Ratio 1.2 (1-3); Creatinine, Serum 0.97 mg/dL (0.67-1.17); Globulin 2.8 g/dL (2-4); Magnesium 1.8 mg/dL (1.9-2.7); Potassium 3.7 mmol/L (3.5-5.0); Total Bilirubin 0.6 mg/dL (0.2-1.0); Total Protein 6.2 g/dL (6.4-8.9)
[2023-07-11 08:38] LABS: TSH Ultra Thyroid Stim Horm 3.46 mcIU/mL (0.34-5.60)
[2023-07-11] MEDS: Aspirin EC 81 mg TAB.EC (enteric coated) PO SCH (10:16)
[2023-07-12] MEDS ORDERED: Gadoteridol (CONTRAST) 279.3 MG/ML 10 ML IV ONE (00:33)
[2023-07-12 06:21] LABS: ABS Eosinophils 0.3 10^3/uL (0.0-0.5); ABS Lymphocytes 1.2 10^3/uL (1.0-4.8); ABS Monocytes 0.9 10^3/uL (0.0-1.1); ABS Neutrophils 6.8 10^3/uL (1.5-7.6); Eosinophil % 3.3 %; Hematocrit 32.1 % (38-53); Hemoglobin 11.1 g/dL (13.2-16.3); Lymphocyte % 12.7 %; Mean Corpuscular Hemoglobin 28.2 pg (27-33); Mean Corpuscular Hgb Conc 34.5 g/dL (31-36); Mean Corpuscular Volume 81.5 fL (80-97); Mean Platelet Volume 7.6 fL (7.5-11.2); Platelet Count 356 10^3/uL (150-450); Red Blood Count 3.94 10^6/uL (4.06-5.63); Red Cell Distribution Width 17.1 % (12-17); White Blood Count 9.3 10^3/uL (3.6-10.2)
[2023-07-12 06:35] LABS: Calcium 7.9 mg/dL (8.6-10.3); Creatinine, Serum 1.01 mg/dL (0.67-1.17); Magnesium 1.9 mg/dL (1.9-2.7); Potassium 3.7 mmol/L (3.5-5.0); eGFR CKD-EPI 73.3 (>60)
[2023-07-12] MEDS: Aspirin EC 81 mg TAB.EC (enteric coated) PO SCH (07:54)
[2023-07-12 14:37] VITALS: BP 150/79
== END 2023-07-12 15:20 | disposition home or self-care (01) ==
LOC: ED 11:40 → EDHOLD 11:40 → SUATTDRO 14:07 → MEDTELE 07-11 01:24
PROVIDERS: ADMIT Internal Medicine; ATTEND Internal Medicine